=== PATIENT | female | born 1975 | race Caucasian/White ===

== ENCOUNTER 2024-11-15 13:04 | Outpatient (AMB) | payer BC, SELFPAY ==
[2024-11-15 13:15] VITALS: BP 136/78; PULSE 82; RESP 18; TEMP 36.2; O2SAT 98; BMI 57.1
--- NOTE | 2024-11-15 13:15 | GYNCLNT_ITS ---
Vital Signs 11/15/24 13:15 Height 1.68 m Height Method Stated Weight 160.628 kg Weight Measurement Method Standing Scale BMI 57.1 BP 136/78 H Blood Pressure Source Automatic Cuff Blood Pressure Location Left Upper Arm Position Sitting Respiration 18 Pulse 82 Pulse Source Monitor Temp 97.2 F Temp Source Oral Pulse Oximetry (%) 98 Oxygen Delivery Method Room Air Allergies/Home Meds Allergies & Medications Allergies No Known Allergies Allergy (Verified 11/15/24 13:16) Medication Reconciliation furosemide 20 mg tablet 20 mg PO QDAY 12/03/24 [History] olmesartan 40 mg tablet 40 mg PO QDAY 12/03/24 [History] Intake Visit Data Collection New Patient or Established: New Patient (never been to [facility]) Reason for Visit:: MAMMOGRAM RESULTS, ESTABLISH cARE Seen by Clinical Staff ONLY (RN/MA): No Junior Estimator Required: No Do You Feel Safe at Home: Yes Authorities Contacted: N/A PCP or OBGYN visit in last 3 months: Yes Hx Now: No Are you currently on any form of Control: No Last menstrual period: 10/27/24 Pain Present Currently: No Pain Scale Used: Gutierres-Beach/Numerical Pain scale:: 0 Smoking Status Smoking Status: Never smoker 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 Menstrual regularity: regular Flow: normal Monthly: Yes How many days does period last: 3 Age at menarche: 12 Currently sexually active: Yes Additional 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: 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: Past Medical History Past Medical History: Yes Hx Hypertension (On furosemide and olmstartin) Additional Operations/Hospitalizations (year & reason): Vaginal delivery 1994 female 7 pounds 11 ounces Vaginal delivery 1997 male 9 pounds 8 ounces 2009 female 8 pounds 2 ounces induced for hypertension Tubal ligation with her in 2009 History of unilateral oophorectomy History of cholecystectomy Other Relevant History: Morbid obesity with BMI of 57 Questionnaires Covid-19 Vaccine Questionnaire Has patient been vacinated for Covid-19 Have you been vacinated for Covid-19: Yes PHQ-9 PHQ-2 Over the last 2 weeks, how often have you been bothered by any of the following problems? 1. Little interest or pleasure in doing things: not at all 2. Feeling down, depressed, or hopeless: not at all Total score: 0 PHQ-9 3. Trouble falling or staying asleep, or sleeping too much: Not at all 4. Feeling tired or having little energy: Not at all 5. Poor appetite or overeating: Not at all 6. Feeling bad about yourself - or that you are a failure or have let yourself or your family down: Not at all 7. Trouble concentrating on things, such as reading the newspaper or watching television: Not at all 8. Moving or speaking so slowly that other people could have noticed? - Or the opposite - being so fidgety or restless that you have been moving around a lot more than usual: not at all 9. Thoughts that you would be better off or of hurting yourself in some way: Not at all Total score: 0 If you checked off any problems, how difficult have these problems made it for you to do your work, take care of things at home, or get along with other people?: not difficult at all Source: Developed by Drs. Elvin Cm, Vicki Sher, Nathan Bah and colleagues, with an educational kerry from [employer]. 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 Spouse here today. Tobacco History Smoking Status: Never smoker Second Hand Smoke Exposure: No Alcohol History Alcohol Intake: Never Domestic Abuse History Do You Feel Safe at Home: Yes History of Present Illness HPI Narrative Patient is a 49-year-old -0-0-3 who used to see me in [place]. She did not release any records. She has a history of vaginal delivery x 2 in the past then she had a in 2009 due to elevated blood pressure. She had a tubal ligation with this . She is here to discuss an abnormal mammogram. Her primary care ordered a mammogram revealing an abnormality in the left breast. The patient needs repeat views ordered. She has a lot of physical complaints today most of which are not gynecological. She reports hypertension, and migraine headaches. She reports recent weight gain, fatigue, visual changes, swelling of her legs and feet. She bruises easily she reports incontinence and occasional blood in her urine. She reports painful cycles, irregular vaginal bleeding ,pelvic pain ,painful intercourse ,breast lumps ,breast pain, joint and muscle pain, muscle weakness, dizziness, headaches ,hot flashes ,night sweats and heat and cold intolerance. She also reports shortness of breath. Her primary care is Gudelia Colbert in [place]. Exam General General Appearance: alert, in no apparent distress, comfortable, cooperative and obese Neck Neck exam: Present normal inspection, full ROM and trachea midline Chest Chest inspection: Present normal inspection and symmetric chest wall rise Resp Respiratory exam: Present normal lung sounds bilaterally Card Cardiovascular exam: Present regular rate, normal rhythm and normal heart sounds Abdominal Abdominal exam: Present soft and normal bowel sounds Extremities Extremities exam: Present normal inspection and full ROM Psych Psychiatric exam: Present normal affect and normal mood Skin Skin exam: Present warm, dry, intact and normal color Office Procedures OB Clinic LOC & Office Proc's Nursing/Assessment Patient Status: Initial/New Patient OB Clinic Nursing Assessment: Medication Reconciliation, Update PMH in EMR and Vital Signs OB Clinic Coordination of Care: Education Complex Pt/Fam, Consent,records obtained, informed consent, Lab and Imaging orders, Results/Orders obtained and Staff clarify orders New Patient Charge New Patient Point Assignment: 1084 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 Recommend following up with her primary care. (2) Perimenopause: Status: Acute Assessment and Plan: Check labs including FSH estradiol and thyroid. Check a pelvic ultrasound. (3) Abnormal mammogram of left breast: Status: Acute Assessment and Plan: Order additional views of left breast Follow-up for an annual exam.
== END 2024-11-15 13:48 | disposition home or self-care (01) ==
LOC: HODSOBC 13:04
PROVIDERS: PCP Family Medicine; Referring Provider Family Medicine; Supervising Provider Obstetrics & Gynecology; Visit Provider Obstetrics & Gynecology
DX: R92.8 Other abnormal and inconclusive findings on diagnostic imaging of breast (principal); E66.01 Morbid (severe) obesity due to excess calories; Z68.43 Body mass index [BMI] 50.0-59.9, adult; I10 Essential (primary) hypertension; N95.1 Menopausal and female climacteric states; R23.2 Flushing; R61 Generalized hyperhidrosis; Z90.49 Acquired absence of other specified parts of digestive tract; Z90.721 Acquired absence of ovaries, unilateral; Z98.51 Tubal ligation status
CPT/HCPCS: 99203; G0463

== ENCOUNTER 2024-12-22 09:49 | Outpatient (AMB) | payer BC, SELFPAY ==
[2024-12-22 10:02] VITALS: BP 130/81; PULSE 76; TEMP 36.6; O2SAT 95; BMI 56.4
--- NOTE | 2024-12-22 10:02 | AMB.GYNCLNOT ---
Vital Signs 12/22/24 10:02 Height 1.68 m Height Method Stated Weight 159.268 kg Weight Measurement Method Standing Scale BMI 56.4 BP 130/81 Blood Pressure Source Automatic Cuff Blood Pressure Location Right Lower Arm Position Sitting Pulse 76 Pulse Source Monitor Temp 97.9 F Temp Source Temporal Artery Scan Pulse Oximetry (%) 95 Oxygen Delivery Method Room Air Allergies/Home Meds Allergies & Medications Allergies No Known Allergies Allergy (Verified 12/22/24 10:03) Medication Reconciliation furosemide 20 mg tablet 20 mg PO QDAY 12/03/24 [History Confirmed 12/22/24] olmesartan 40 mg tablet 40 mg PO QDAY 12/03/24 [History Confirmed 12/22/24] Intake Visit Data Collection New Patient or Established: Established Patient (seen at 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 1. Little interest or pleasure in doing things: not at all 2. Feeling down, depressed, or hopeless: not at all Total score: 0 PHQ-9 3. Trouble falling or staying asleep, or sleeping too much: Not at all 4. Feeling tired or having little energy: Not at all 5. Poor appetite or overeating: Not at all 6. Feeling bad about yourself - or that you are a failure or have let yourself or your family down: Not at all 7. Trouble concentrating on things, such as reading the newspaper or watching television: Not at all 8. Moving or speaking so slowly that other people could have noticed? - Or the opposite - being so fidgety or restless that you have been moving around a lot more than usual: not at all 9. Thoughts that you would be better off or of hurting yourself in some way: Not at all Total score: 0 If you checked off any problems, how difficult have these problems made it for you to do your work, take care of things at home, or get along with other people?: not difficult at all Source: Developed by Drs. Elvin Cm, Vicki Sher, Nathan Bah and colleagues, with an educational kerry from [employer]. 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 Spouse here today. Tobacco History Smoking Status: Never smoker Second Hand Smoke Exposure: No Alcohol History Alcohol Intake: Never Domestic Abuse History Do You Feel Safe at Home: Yes History of Present Illness HPI Narrative The patient is a 49-year-old -0-0-3 presents for follow-up. She actually thought she was going to have a Pap and physical exam today but she was only on my schedule double booked for lab results. We will follow-up in about a week or two for an annual exam. She wants to discuss the fact that she hurts all the time. Her joints are always very sore. Her labs are reviewed with an elevated CRP of approximately 2.16 and an elevated ESR. All other labs I [place] were normal. Patient states that Dr. Gudelia Carrillo is her primary care and she is out of the office due to some medical problem. She is not sure who is covering for her. In the past she did see Dr. Hammond who is a meat grinder. She wanted to discuss her labs with me as her primary care is out of the office. Her MAYRA is negative. I did discuss moderate weight loss, stretching, arthritis and sore joints and muscle aches as she gets older. Sometimes herbal remedies such as turmeric help. Sometimes eating gluten-free will help with inflammation of her joints. I recommended she follow-up with her primary care or whoever is covering her primary care to get another referral to meat grinder it has been years since she saw the previous meat grinder and he has since retired. Exam Narrative Physical exam: Remainder of physical exam deferred as patient was only scheduled for lab results. General Limitations: no limitations General Appearance: alert, in no apparent distress, cooperative, well groomed and obese Office Procedures OB Clinic LOC & Office Proc's Nursing/Assessment Patient Status: Established Patient OB Clinic Nursing Assessment: Medication Reconciliation, Update PMH in EMR and Vital Signs OB Clinic Coordination of Care: Complex Care and Chronic Disease 1-5, Consent,records obtained, informed consent, Education Simp Pt/Fam, Results/Orders obtained and Staff clarify orders Established Patient Charge Established Patient Point Assignment: 90 Established Patient Point Charge: EP Level 3 (80-115) Assessment & Plan Diagnosis / Problem List (1) Morbid obesity with BMI of 50.0-59.9, adult: Status: Acute (2) Joint pain: Status: Acute Qualifiers: Laterality: bilateral Assessment and Plan: Reviewed that her markers for nonspecific inflammation meaning CRP and ESR were elevated. I reviewed the fact her MAYRA was negative suggestive of possibly not a rheumatological condition. Patient is still seeking answers for her joint pain and I again referred her back to her primary care. She will follow-up with me in about 2 weeks for an annual exam.
== END 2024-12-22 10:51 | disposition home or self-care (01) ==
LOC: HODSOBC 09:49
PROVIDERS: PCP Family Medicine; Referring Provider Family Medicine; Supervising Provider Obstetrics & Gynecology; Visit Provider Obstetrics & Gynecology
DX: E66.01 Morbid (severe) obesity due to excess calories (principal); Z68.43 Body mass index [BMI] 50.0-59.9, adult; M25.50 Pain in unspecified joint; R79.82 Elevated C-reactive protein (CRP)
CPT/HCPCS: 99213; G0463

== ENCOUNTER 2025-02-02 10:50 | Outpatient (AMB) | payer BC, SELFPAY ==
[2025-02-02 11:29] VITALS: BP 139/61; PULSE 70; RESP 18; TEMP 36.4; O2SAT 97; BMI 56.6
--- NOTE | 2025-02-02 11:29 | GYNCLNT_ITS ---
Vital Signs 02/02/25 11:29 Height 1.68 m Height Method Stated Weight 159.778 kg Weight Measurement Method Standing Scale BMI 56.6 BP 139/61 H Blood Pressure Source Automatic Cuff Blood Pressure Location Left Upper Arm Position Sitting Respiration 18 Pulse 70 Pulse Source Monitor Temp 97.6 F Temp Source Oral Pulse Oximetry (%) 97 Oxygen Delivery Method Room Air Allergies/Home Meds Allergies & Medications Allergies No Known Allergies Allergy (Verified 02/02/25 11:30) Medication Reconciliation furosemide 20 mg tablet 20 mg PO QDAY 12/03/24 [History Confirmed 02/02/25] olmesartan 40 mg tablet 40 mg PO QDAY 12/03/24 [History Confirmed 02/02/25] Intake Visit Data Collection New Patient or Established: Established Patient (seen at [facility] within 3 years) Reason for Visit:: ANNUAL WELLNESS Seen by Clinical Staff ONLY (RN/MA): No Grades 1 Thru 5 Teacher Required: No Do You Feel Safe at Home: Yes Authorities Contacted: N/A PCP or OBGYN visit in last 3 months: Yes Hx Now: No Are you currently on any form of Control: Yes Last menstrual period: 01/10/25 Pain Present Currently: No Pain Scale Used: Gutierres-Beach/Numerical Pain scale:: 7 Smoking Status Smoking Status: Never smoker 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 1. Little interest or pleasure in doing things: not at all 2. Feeling down, depressed, or hopeless: not at all Total score: 0 PHQ-9 3. Trouble falling or staying asleep, or sleeping too much: Not at all 4. Feeling tired or having little energy: Not at all 5. Poor appetite or overeating: Not at all 6. Feeling bad about yourself - or that you are a failure or have let yourself or your family down: Not at all 7. Trouble concentrating on things, such as reading the newspaper or watching television: Not at all 8. Moving or speaking so slowly that other people could have noticed? - Or the opposite - being so fidgety or restless that you have been moving around a lot more than usual: not at all 9. Thoughts that you would be better off or of hurting yourself in some way: Not at all Total score: 0 Source: Developed by Drs. Elvin Cm, Vicki Sher, Nathan Bah and colleagues, with an educational kerry from [email or web address]. 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 Patient is in good spirits today. She presents for an annual exam. She states her daughter is having a quincenera coming up in about a week. She had an ultrasound ordered at [facility] she would like to go over. We were checking her ovaries and her uterus for pelvic pain. The report is dated 01/25/2025 revealing the uterus to be anteverted measuring 10 x 6.8 x 4.1 cm with no uterine masses. The endometrial stripe was 1.6 mm , her right ovary was obscured by bowel gas, herleft ovary is reportedly absent not visualized no evidence of adnexal masses or torsion. She had some benign nabothian cysts. She states she had 2 cycles in the month of December, One starting December 27 and then again January 13 both lasted about 4 days. She has not had a cycle yet this month. The patient has a history of PCOS and states that interestingly for the last couple years her cycles have been normal. She is denying any consistent hot flashes or night sweats. We did discuss the fact that she must withdraw every 4 months. If she is not having a cycle every 4 months she should call and I can prescribe a progesterone withdrawal. Her primary care is Dr. Gudelia Coffman. No consistent hot flashes night sweats or vaginal dryness. Patient's had a tubal ligation for contraception. She has a history of PCOS and a history of abnormal periods but they have been more regular the last couple years. She had 2 cycles in December. No consistent pelvic pain severe incontinence or dyspareunia. Menstrual character: normal Gynecologic pain symptoms: Reports none Menopause concerns/symptoms: Reports none Exam Narrative Physical exam: Patient asked to defer breast exam as she just had a normal mammogram. General Limitations: no limitations General Appearance: alert, comfortable, cooperative, well groomed and obese Neck Neck exam: Present normal inspection, full ROM and trachea midline Chest Chest inspection: Present normal inspection and symmetric chest wall rise Resp Respiratory exam: Present normal lung sounds bilaterally Card Cardiovascular exam: Present regular rate, normal rhythm and normal heart sounds Abdominal Abdominal exam: Present soft, normal bowel sounds and other (Patient has a enlarging itchy mole in her left lower quadrant) External exam: Present normal external exam Speculum exam: Present normal speculum exam Bimanual exam: Present normal bimanual exam and other (Bimanual exam limited by patient body habitus.) Extremities Extremities exam: Present normal inspection and full ROM Psych Psychiatric exam: Present normal affect and normal mood Skin Skin exam: Present warm, dry, intact and normal color Office Procedures OB Clinic LOC & Office Proc's Nursing/Assessment Patient Status: Established Patient OB Clinic Nursing Assessment: Medication Reconciliation, Update PMH in EMR and Vital Signs OB Clinic Coordination of Care: Complex Care and Chronic Disease 1-5, Consent,records obtained, informed consent, Education Simp Pt/Fam, Lab and Imaging orders, Results/Orders obtained and Staff clarify orders Miscellaneous Interventions: Breast Exam and Pelvic/Pap Smear Set up Established Patient Charge Established Patient Point Assignment: 155 Established Patient Point Charge: EP Level 4 (120-155) In Clinic Procedures Pap Smear: Yes Assessment & Plan Diagnosis / Problem List (1) Encounter for Routine Gynecological Examination: Qualifiers: Gynecological examination findings: abnormal findings ABSENT Qualified Code(s): Z01.419 - Encounter for gynecological examination (general) (routine) without abnormal findings Assessment and Plan: Pap with cotesting to HPV performed, breast exam deferred at patient's request. She had a normal mammogram. Will get a hold of this on her chart as I do not have it. We will call the patient with the results of her Pap smear. She will report any heavy vaginal bleeding. We did discuss the risks of uterine cancer which are increased in obese females, including heavy cycles. If this occurs, she will need an endometrial biopsy. Right now the patient is still having normal cycles. Her endometrial stripe was 1.6 mm which is within normal limits. Patient can follow-up yearly or as needed. I suggest she call her primary care and get a referral to dermatology to look at the mole on her abdomen. Additional Plan Call with results of her Pap smear. 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
== END 2025-02-02 12:25 | disposition home or self-care (01) ==
LOC: HODSOBC 10:50
PROVIDERS: Supervising Provider Obstetrics & Gynecology; Visit Provider Obstetrics & Gynecology
DX: Z01.419 Encounter for gynecological examination (general) (routine) without abnormal findings (principal); Z11.51 Encounter for screening for human papillomavirus (HPV); E66.9 Obesity, unspecified; Z68.43 Body mass index [BMI] 50.0-59.9, adult; I10 Essential (primary) hypertension; Z98.51 Tubal ligation status; Z79.899 Other long term (current) drug therapy
CPT/HCPCS: 99214; Q0091; G0463